=== PATIENT | male | born 1995 | race African-American/Black ===

== ENCOUNTER 2024-10-16 09:02 | Emergency (ER) | payer OTHER ==
[~2024-10-16] VITALS: Ht 175.3 cm; Wt 95.0 kg
[~2024-10-16 09:02] MED LIST: NOCURR
[2024-10-16 09:05] VITALS: BP 143/92; PULSE 104; RESP 18; TEMP 97.7; O2SAT 98
[2024-10-16] MEDS ORDERED: IBUP-1492 PO (09:45)
[2024-10-16] MEDS: IBUPROFEN 600 MG TABLET PO ONE (09:46)
[2024-10-16] MEDS: LIDOCAINE 5% TRANSDERMAL PATCH TD ONE (09:47)
== END 2024-10-16 10:25 | disposition home or self-care (01) ==
LOC: EMS 09:07
DX: S29.012A Strain of muscle and tendon of back wall of thorax, initial encounter (principal); W50.0XXA Accidental hit or strike by another person, initial encounter; Y93.89 Activity, other specified; Y92.89 Other specified places as the place of occurrence of the external cause; Y99.8 Other external cause status
CPT/HCPCS: 99283